=== PATIENT | male | born 1975 | race Hispanic/Latino ===

== ENCOUNTER 2020-01-06 19:11 | Emergency (ER) | payer OTHER, SELFPAY ==
--- OUTSIDE RECORDS SUMMARY | 2020-01-06 19:13 | XMS REPORT | Clinical Summary ---
:1975 Author Organization [facility] Distr ict Address [facility] [place] [address] Care Team Providers Name Role Phone MD Margarita Primary Care Provider Saud Anguiano MD Primary Care Provider Allergies No Known Allergies Medications Medication Sig Dispensed Refills Start Date End Date Status ergocalciferol (VITAMIN Take 1 capsule 12 capsule 0 11/26/2017 Active D2) 50,000 unit by mouth weekly. capsuleIndications: Vitamin D deficiency ibuprofen (MOTRIN) 600 Take 1 tablet by 45 tablet 0 02/01/2018 Active mg tabletIndications: mouth every 8 Chronic bilateral low hours as needed back pain without for Pain. sciatica ketoconazole (NIZORAL) Apply to 30 g 0 02/01/2018 Active 2 % topical cream affected area daily. Active Problems Problem Noted Date Dental decay 06/07/2018 Subgingival dental calculus 04/25/2018 Chronic bilateral low back pain without sciatica 02/01 Social History Tobacco Use Types Packs/Day Years Used Date Never Smoker Smokeless Tobacco: Never Used Alcohol Use Drinks/Week oz/Week Comments No Sex Assigned at Date Recorded Not on file Job Start Date Occupation Industry Not on file Not on file Not on file Travel History Travel Start Travel End No recent travel history available. Last Filed Vital Signs Not on file Plan of Treatment Health Maintenance Due Date Last Done Comments IMM Influenza Seasonal Apr to September (>/= 19 yrs) 04/25/2020 Goals Goal Patient Goal Associated Recent Patient-Stated? Author Type Problems Progress Reduce pain Lifestyle No Arin Lino LVN Results Not on fileafter 01/05/2019
--- OUTSIDE RECORDS SUMMARY | 2020-01-06 19:13 | XMS REPORT | Continuity of Care Document ---
:1975 Author Organization [facility] t Address [address] [place] [address] Care Team Providers Name Role Phone Marlee Avila MD Primary Care Physician Problems Condition Condition Condition Status Onset Resolution Last Treating Co mments Source Name Details Category Date Date Treatment Clinician Date Dental Dental Disease Active 2017-07 [place] decay decay -13 Health 00:00: 00 Subgingiva Subgingiva Disease Active 2017-07 H arris l dental l dental 0-01 Health calculus calculus 00:00: 00 Chronic Chronic Disease Active [place] bilateral bilateral 7-10 [facility] low back low back 00:00: pain pain 00 without without sciatica sciatica Allergies, Adverse Reactions, Alerts This patient has no known allergies or adverse reactions. Social History Social Habit Start Date Stop Date Quantity Comments Source Sex Assigned At [facility] alth Alcohol intake 2018-09-08 2018-09-08 [facility] lt 00:00:00 00:00:00 Smoking Status Start Date Stop Date Source Never smoker [facility] Medications Ordered Filled Start Stop Current Ordering Indication Dosage Frequency Signature Comments Components Source Medication Medication Date Date Medication? Clinician (SIG) Name Name ibuprofen Yes Chronic 600mg Take 1 rris (MOTRIN) 7-10 bilateral tablet by H ealth 600 mg 00:00: low back mouth tablet 00 pain every 8 without hours as sciatica needed for Pain. ketoconazol Yes QD Apply to [place] rris e (NIZORAL) 7-10 affected Heal th 2 % topical 00:00: area cream 00 daily. ergocalcife Yes Vitamin D [id number] Take 1 [facility] 5-04 deficiency capsule by Meek black (VITAMIN 00:00: mouth D2) 50,000 00 weekly. unit capsule Procedures This patient has no known procedures. Plan of Care Planned Activity Planned Date Details Comments Source Future Scheduled Test 2020-04-25 00:00:00 IMM Influenza [facility] Seasonal Apr to September (>/= 19 yrs) [code = IMM Influenza Seasonal Apr to September (>/= 19 yrs)] Encounters Start End Encounter Admission Attending Care Care Encounter Source Date/Time Date/Time Type Type Clinicians Facility Department ID 2018-10-14 2018-10-14 Outpatient [facility] [id number] [place] 00:00:00 00:00:00 [facility] 2018-10-11 2018-10-11 Outpatient [facility] [id number] [place] 00:00:00 00:00:00 [facility] 2018-09-08 2018-09-08 Outpatient [facility] [id number] [place] 13:14:28 13:14:28 Health 2018-09-08 2018-09-08 Outpatient [facility] [id number] [place] 12:42:57 12:42:57 [facility] 2018-09-08 2018-09-08 Outpatient [facility] [id number] [place] 11:36:42 11:36:42 [facility] 2018-09-05 2018-09-05 Outpatient [facility] [id number] [place] 00:00:00 00:00:00 [facility] 2018-07-25 2018-07-25 Outpatient [facility] [id number] [place] 07:30:11 07:30:11 Health 2018-07-22 2018-07-22 Outpatient [facility] [id number] [place] 14:58:54 14:58:54 Health 2018-07-22 2018-07-22 Outpatient [facility] [id number] [place] 00:00:00 00:00:00 [facility] 2018-06-07 2018-06-07 Outpatient [facility] [id number] [place] 13:21:31 13:21:31 Health 2018-04-25 2018-04-25 Outpatient [facility] [id number] [place] 08:34:06 08:34:06 Health 2018-03-14 2018-03-14 Outpatient [facility] [id number] [place] 10:05:11 10:05:11 Health 2018-02-02 2018-02-02 Outpatient [facility] [id number] [place] 07:54:43 07:54:43 Health 2018-02-01 2018-02-01 Outpatient [facility] [id number] [place] 11:56:44 11:56:44 Health Results This patient has no known results.
--- NOTE | 2020-01-06 20:02 | RAD REPORT ---
EXAM DESCRIPTION: RAD -Hand Left 3 View - 01/06/2020 7:44 pm CLINICAL HISTORY: Left hand pain status post injury FINDINGS: No fracture or dislocation is seen. Third digit soft tissue swelling
[2020-01-06] MEDS ORDERED: BUPIVACAINE 0.5% PF 10 ML VIAL ONE (21:52)
[2020-01-06] MEDS ORDERED: LIDOCAINE 1% MPF 30 ML VIAL ONE (21:53)
[2020-01-06] MEDS ORDERED: LIDOCAINE VISCOUS 2% SOLN 15 ML UDC ONE (22:10)
--- NOTE | 2020-01-06 22:44 | EDPHYS ---
Physician Documentation [facility] Name: Jose Daniel Andrew Age: 44 yrs Sex: Male : 1975 Arrival Date: 01/06/2020 Time: 19:12 Bed 20 Private MD: ED Physician Gildardo Webber HPI: 01/05 21:45 This 44 yrs old Male presents to ER via Ambulatory with complaints of Finger cp Injury. 21:45 The patient or guardian reports deformity, injury, pain, tenderness. cp 21:45 The complaints affect the distal phalanx of left middle finger. cp 21:45 Context: resulted from a crush injury, heavy door. Onset: The symptoms/episode cp began/occurred just prior to arrival. Associated signs and symptoms: Pertinent negatives: cyanosis distally, decreased sensation distally. Historical: - Allergies: 19:20 No Known Allergies; ca1 - Home Meds: 19:20 None [Active]; ca1 - PMHx: 19:20 None; ca1 - PSHx: 19:20 None; ca1 - Immunization history:: Adult Immunizations up to date, Last tetanus immunization: unknown. - Social history:: Smoking status: Patient reports the use of cigarette tobacco products, denies chronic smoking, but will smoke occasionally. ROS: 21:50 MS/extremity: Positive for injury or acute deformity, pain, of the distal phalanx left cp middle finger, Negative for decreased range of motion, paresthesias. 21:50 Constitutional: Negative for body aches, chills, fever. cp 21:50 All other systems are negative. Exam: 22:00 Constitutional: The patient appears in no acute distress, alert, awake, well developed, cp well nourished. 22:00 Musculoskeletal/extremity: Extremities: grossly normal except: noted in the distal cp phalanx left middle finger: ROM: full active range of motion, in the left middle finger, Perfusion: the extremity is with brisk capillary refill, Sensation intact. 2 point discrimination intact 22:00 Skin: injury, avulsion(s), A moderate sized of the [place] side of distal phalanx left middle finger, that can be described as no foreign body, irregular, with moderate bleeding. Vital Signs: 19:18 BP 135 / 81; Pulse 63; Resp 16 S; Temp 97.4(TE); Pulse Ox 99% on R/A; Weight 91.17 kg ca1 (R); Height 5 ft. 5 in. (165.10 cm) (R); Pain 5/10; 23:02 BP 135 / 78; Pulse 70; Resp 18; Temp 98.5; Pulse Ox 100% on R/A; mg2 19:18 Body Mass Index 33.45 (91.17 kg, 165.10 cm) ca1 Procedures: 22:45 Nerve block: (digital) of left middle finger Medication: Lidocaine 1% without cp epinephrine Marcaine 0.5%, Amount: 8 mls were injected, Effect: the patient's symptoms are improved, markedly, Performed by Cesar KEN Patient tolerated well. MDM: 21:30 Patient medically screened. cp 22:00 Differential diagnosis: open fracture, tendon injury, nail injury, amputation. cp 22:42 Data reviewed: vital signs, nurses notes, radiologic studies, plain films, I have cp discussed the patient's presentation/case with the attending Emergency Department Physician; and as a result, I will discharge patient. 22:42 Counseling: I had a detailed discussion with the patient and/or guardian regarding: the cp historical points, exam findings, and any diagnostic results supporting the discharge/admit diagnosis, radiology results, the need for outpatient follow up, for definitive care, a hand specialist, to return to the emergency department if symptoms worsen or persist or if there are any questions or concerns that arise at home. 22:42 Response to treatment: the patient's symptoms have markedly improved after treatment. ED course: VSS. Wound cleaned and irrigated, pressure dressing applied. Digital block performed for pain. Will discharge to home for continued monitoring. 01/06 21:07 ED course: Diagnosis: change to Crushing injury of Left Middle Finger with avulsion of cp skin. 01/05 19:21 Order name: XRAY Hand LEFT 3 View; Complete Time: 21:34 ca1 01/05 21:35 Interpretation: Report reviewed. 01/05 21:41 Order name: Dressing - Wound; Complete Time: 22:23 cp 01/05 21:41 Order name: Gloves, Sterile; Complete Time: 22:23 cp 01/05 21:41 Order name: Setup Suture Tray; Complete Time: 22:23 cp Administered Medications: 01/05 22:15 Drug: Lidocaine (1 %) 10 ml {Note: administered by the provider.} Volume: 20 ml; Route: mg2 Infiltration; 22:23 Follow up: Response: No adverse reaction mg2 22:15 Drug: Marcaine (0.5 %) 10 ml {Note: administered by the provider.} Volume: 10 ml; mg2 Route: Infiltration; 22:23 Follow up: Response: No adverse reaction mg2 22:57 Drug: KeFLEX 500 mg Route: PO; mg2 22:58 Follow up: Response: No adverse reaction; Medication administered at discharge. mg2 22:57 Drug: Hydrocodone-Acetaminophen (7.5 mg-325 mg) 1 tabs Route: PO; mg2 22:57 Follow up: Response: No adverse reaction; Medication administered at discharge. mg2 Disposition: 23:10 Chart complete. 01/06 06:24 Co-signature as Attending Physician, Gildardo Webber MD I agree with the assessment and tw4 plan of care. Disposition: 01/06/20 22:43 Discharged to Home. Impression: Crushing injury of left ring finger - with skin avulsion distal phalanx. - Condition is Stable. - Discharge Instructions: Nonsutured Laceration Care, Wound Care. - Prescriptions for Keflex 500 mg Oral Capsule - take 1 capsule by ORAL route every 6 hours for 10 days; 40 capsule. Tylenol- Codeine #3 300-30 mg Oral Tablet - take 2 tablets by ORAL route every 6 hours As needed; 20 tablet. - Medication Reconciliation Form, Thank You Letter, Antibiotic Education, Prescription Opioid Use form. - Follow up: Daniel Hsu MD; When: 1 - 2 days; Reason: Wound Recheck. - Problem is new. - Symptoms have improved. Signatures: Dispatcher [employer] EDMS Cesar Aranda PA PA cp Wadley, Terrence, MD MD tw4 Abner Romero RN RN mg2 Angie Chase RN RN ca1 Corrections: (The following items were deleted from the chart) 01/05 23:06 22:43 01/06/2020 22:43 Discharged to Home. Impression: Crushing injury of left ring mg2 finger - with skin avulsion distal phalanx. Condition is Stable. Forms are Medication Reconciliation Form, Thank You Letter, Antibiotic Education, Prescription Opioid Use. Follow up: Daniel Hsu; When: 1 - 2 days; Reason: Wound Recheck. Problem is new. Symptoms have improved. cp
--- NOTE | 2020-01-06 22:44 | ER ---
Nurse's Notes [facility] Name: Jose Daniel Andrew Age: 44 yrs Sex: Male : 1975 Arrival Date: 01/06/2020 Time: 19:12 Bed 20 Private MD: Diagnosis: Crushing injury of left ring finger-with skin avulsion distal phalanx Presentation: 01/05 19:18 Chief complaint: Patient states: 3rd digit of the L hand was slammed by a heavy door. ca1 Coronavirus screen: Proceed with normal triage. Patient denies a cough. Patient denies shortness of breath or difficulty breathing. Patient denies measured and/or subjective temperature greater than 100.4F prior to today's visit. Patient denies travel on a cruise ship or to a country the [facility] 2[place] currently lists as an affected area. Patient denies contact with known and/or suspected case of COVID-19. Ebola Screen: Patient negative for fever greater than or equal to 101.5 degrees Fahrenheit, and additional compatible Ebola Virus Disease symptoms Patient denies exposure to infectious person. Patient denies travel to an Ebola-affected area in the 21 days before illness onset. No symptoms or risks identified at this time. Initial Sepsis Screen: Does the patient meet any 2 criteria? No. Patient's initial sepsis screen is negative. Does the patient have a suspected source of infection? No. Patient's initial sepsis screen is negative. Risk Assessment: Do you want to hurt yourself or someone else? Patient reports no desire to harm self or others. Onset of symptoms was January 06, 2020. 19:18 Method Of Arrival: Ambulatory ca1 19:18 Acuity: NILA 4 ca1 Historical: - Allergies: 19:20 No Known Allergies; ca1 - Home Meds: 19:20 None [Active]; ca1 - PMHx: 19:20 None; ca1 - PSHx: 19:20 None; ca1 - Immunization history:: Adult Immunizations up to date, Last tetanus immunization: unknown. - Social history:: Smoking status: Patient reports the use of cigarette tobacco products, denies chronic smoking, but will smoke occasionally. Screenin:01 Abuse screen: Denies threats or abuse. Denies injuries from another. Nutritional mg2 screening: No deficits noted. Tuberculosis screening: No symptoms or risk factors identified. Fall Risk None identified. Assessment: 22:30 General: Appears in no apparent distress. uncomfortable, Behavior is calm, cooperative. mg2 Pain: Complains of pain in right middle finger. Neuro: Level of Consciousness is awake, alert, obeys commands, Oriented to person, place, time, situation. Cardiovascular: Capillary refill < 3 seconds. Respiratory: Airway is patent Respiratory effort is even, unlabored, Respiratory pattern is regular, symmetrical. GI: No signs and/or symptoms were reported involving the gastrointestinal system. : No signs and/or symptoms were reported regarding the genitourinary system. EENT: No signs and/or symptoms were reported regarding the EENT system. Derm: crush injury in the right middle finger. Musculoskeletal: Circulation, motion, and sensation intact. Capillary refill < 3 seconds. Injury Description: Crush injury. Vital Signs: 19:18 BP 135 / 81; Pulse 63; Resp 16 S; Temp 97.4(TE); Pulse Ox 99% on R/A; Weight 91.17 kg ca1 (R); Height 5 ft. 5 in. (165.10 cm) (R); Pain 5/10; 23:02 BP 135 / 78; Pulse 70; Resp 18; Temp 98.5; Pulse Ox 100% on R/A; mg2 19:18 Body Mass Index 33.45 (91.17 kg, 165.10 cm) ca1 ED Course: 19:12 Patient arrived in ED. ds1 19:20 Triage completed. ca1 19:20 Arm band placed on right wrist. ca1 19:44 XRAY Hand LEFT 3 View In Process Unspecified. EDMS 21:27 Cesar Aranda PA is PHCP. cp 21:27 Gildardo Webber MD is Attending Physician. cp 21:42 Abner Romero, HUMBERTO is Primary Nurse. mg2 22:30 Patient has correct armband on for positive identification. Door closed. Warm blanket mg2 given. 22:30 No provider procedures requiring assistance completed. Patient did not have IV access mg2 during this emergency room visit. 22:30 Irrigation of crush injury on left middle finger irrigated with normal saline Hibiclens mg2 solution Patient tolerated well. Wound care: to crush injury located on left middle finger was cleaned with Hibiclens, irrigated with normal saline, dressed with 4X4s, surgiseal, Patient tolerated well. 22:41 Daniel Hsu MD is Referral Physician. cp 23:05 Wound care:. mg2 Administered Medications: 22:15 Drug: Lidocaine (1 %) 10 ml {Note: administered by the provider.} Volume: 20 ml; Route: mg2 Infiltration; 22:23 Follow up: Response: No adverse reaction mg2 22:15 Drug: Marcaine (0.5 %) 10 ml {Note: administered by the provider.} Volume: 10 ml; mg2 Route: Infiltration; 22:23 Follow up: Response: No adverse reaction mg2 22:57 Drug: KeFLEX 500 mg Route: PO; mg2 22:58 Follow up: Response: No adverse reaction; Medication administered at discharge. mg2 22:57 Drug: Hydrocodone-Acetaminophen (7.5 mg-325 mg) 1 tabs Route: PO; mg2 22:57 Follow up: Response: No adverse reaction; Medication administered at discharge. mg2 Intake: 22:52 IV: 175ml; Total: 175ml. ls4 Outcome: 22:43 Discharge ordered by MD. cp 23:04 Discharged to home ambulatory. mg2 23:04 Condition: stable 23:04 Discharge instructions given to patient, Instructed on discharge instructions, follow up and referral plans. medication usage, wound care, Demonstrated understanding of instructions, follow-up care, medications, wound care, Prescriptions given X 2. 23:06 Patient left the ED. mg2 Signatures: Dispatcher [employer] [facility] Bree Guaman ds1 Cesar Aranda PA PA cp Abner Romero RN RN mg2 Albania Diaz RN RN ls4 Angie Chase RN RN ca1 Corrections: (The following items were deleted from the chart) 23:02 23:01 Patient has correct armband on for positive identification. mg2 mg2 23:02 23:01 Door closed. Warm blanket given. mg2 mg2 23:06 22:30 Irrigation of crush injury on right middle finger irrigated with normal saline mg2 Hibiclens solution Patient tolerated well mg2 23:06 22:30 Wound care: to crush injury located on right middle finger was cleaned with mg2 Hibiclens, irrigated with normal saline, dressed with 4X4s, surgiseal, Patient tolerated well. mg2
[2020-01-06] MEDS ORDERED: HYDROCODONE/APAP 7.5/325 MG TAB ONE (22:56)
[2020-01-06] MEDS ORDERED: CEPHALEXIN 250 MG CAP ONE (22:56)
[2020-01-06 23:18] VITALS: BP 135/78; TEMP 98.5; O2SAT 100
== END 2020-01-06 23:06 | disposition home or self-care (01) ==
LOC: ER 19:11
DX: S61.205A Unspecified open wound of left ring finger without damage to nail, initial encounter (principal); S67.195A Crushing injury of left ring finger, initial encounter; W23.0XXA Caught, crushed, jammed, or pinched between moving objects, initial encounter; Y93.9 Activity, unspecified; Y92.9 Unspecified place or not applicable; F17.210 Nicotine dependence, cigarettes, uncomplicated
CPT/HCPCS: 64450; 99284

== ENCOUNTER 2024-10-03 03:59 | Inpatient (IN) | payer OTHER ==
[2024-10-03 04:41] LABS: Absolute Eosinophils 0.2 K/uL (0-0.5); Absolute Lymphocytes (CBC) 0.6 K/uL (0.7-4.9); Absolute Monocytes 0.7 K/uL (0.1-1.3); Absolute Neutrophil 12.3 K/uL (1.8-8.0); Basophils % 0.3 % (0-1.3); Eosinophils % 1.5 % (0-4.4); Hematocrit 45.3 % (39.6-49.0); Hemoglobin 15.1 g/dL (13.6-17.9); Lymphocytes % 4.2 % (15.3-44.8); MCH 28.2 pg (27.0-35.0); MCHC 33.2 g/dL (32.0-36.0); MCV 84.9 fL (80-100); MPV 7.7 fL (7.6-11.3); Monocytes % 4.9 % (3.3-12.3); Neutrophils % 89.1 % (41.7-73.7); Platelets 262 thou/uL (152-406); RBC Red Blood Cell Count 5.34 M/uL (4.33-5.43); Red Cell Distribution Width 13.6 % (12.1-15.2)
[2024-10-03 04:55] LABS: ALT/SGPT 31 U/L (16-61); AST/SGOT 14 U/L (15-37); Albumin 3.9 g/dL (3.4-5.0); Albumin/Globulin Ratio 0.9 (1.1-1.8); Alkaline Phosphatase 93 U/L (45-117); Anion Gap 7.9 mEq/L (5.0-15.0); BUN Blood Urea Nitrogen 20 mg/dL (7-18); Bicarbonate 31 mEq/L (21-32); Bilirubin Direct 0.2 mg/dL (0-0.2); Bilirubin Indirect, Calculated 0.8 mg/dL (0.2-0.8); Globulin 4.4 g/dL (2.3-3.5); Glomerular Filtration Rate 90 ml/min (=/>90); Glucose Level 122 mg/dL (74-106); Potassium 3.9 mEq/L (3.5-5.1); Protein, Total 8.3 g/dL (6.4-8.2); Sodium Level 136 mEq/L (136-145)
[2024-10-03 05:11] LABS: Troponin High Sensitivity < 3.0 pg/mL (<58.9)
[2024-10-03 05:18] LABS: Band Neutrophils 11 % (0-1); Differential Total Cells Count 100; Eosinophils 2 % (0-3); Lymphocytes 9 % (15-42); Monocytes 3 % (0-10); Reactive Lymphocytes 1 %; Segmented Neutrophils 74 % (40-80)
[2024-10-03 05:19] LABS: Blood Morphology Comment NOT SEEN (NOT SEEN); Platelet Estimate ADEQ
--- NOTE | 2024-10-03 06:51 | RAD REPORT ---
EXAM DESCRIPTION: Abdomen Pelvis W Contrast CLINICAL HISTORY: RLQ PAIN COMPARISON: None TECHNIQUE: Contiguous axial sections of the abdomen and pelvis were obtained with intravenous contrast. This exa m was performed according to our departmental dose-optimization program, which includes automated exposure control, adjustment of the mA and/or kV according to patient size and/or use of iterative re construction technique. FINDINGS: Lower Chest: The imaged lung bases are clear. No pleural or pericardial effusion. Organs: The liver, spleen, gallbladder, pancreas, and adrenal glands are normal. The kidneys are inta ct. GI/Bowel: Mildly distended fluid-filled loops of small bowel within the left mid and lower quadrant o f the abdomen measuring up to 3.2 cm. There is wall thickening of the small bowel loops within the left mid and lower quadrant of the abdomen secondary to a nonspecific enteritis. The appendix is norm al. The stomach is moderately distended with fluid. Pelvis: The bladder is normal. The rectum is normal. No pelvic free fluid. No pelvic lymphadenopathy. Peritoneum/Retroperitoneum: No intraperitoneal free air. No intraperitoneal free fluid. No mesenteric or retroperitoneal lymphadenopathy. Bones/Soft Tissues: There are no suspicious-appearing lytic or blastic osseous lesions. IMPRESSION: 1. Nonspecific enteritis with mildly distended fluid-filled loops of small bowel left mid and lower quadrant of the abdomen suggesting ileus. 2. Normal appendix. RECOMMENDATIONS: Electronically signed by: Maverick Palomino MD 10/03/2024 06:45 AM CDT RP Due to temporary technical issues with the PACS/[employer] reporting system, reports are being clover d by the in-house radiologist without review as a courtesy to ensure prompt reporting the interpreting radiologist is fully responsible for the content of the report. Transcribed Date/Time: 10/03/2024 6:51 AM
--- NOTE | 2024-10-03 06:52 | RAD REPORT ---
CLINICAL HISTORY: Chest pain. COMPARISON: None. TECHNIQUE: XR CHEST 1 VIEW 10/03/2024 4:13 AM CDT FINDINGS: Cardiac silhouette is normal in size. Lungs are clear without consolidation, atelectasis, mass or lopez ma. There is no pleural effusion. There is no pneumothorax. There are no acute osseous findings. IMPRESSION: Clear lungs. Electronically signed by: Alphonse Park MD 10/03/2024 06:49 AM CDT RP Du e to temporary technical issues with the PACS/[employer] reporting system, reports are being signed by the in-house radiologist without review as a courtesy to ensure prompt reporting the [facility] radiologist is fully responsible for the content of the report. Transcribed Date/Time: 10/03/2024 6:52 AM
--- NOTE | 2024-10-03 07:00 | ER ---
Nurse's Notes [facility] Name: Jose Daniel Andrew Age: 49 yrs Sex: Male : 1975 Arrival Date: 10/03/2024 Time: 03:59 Bed 6 Private MD: Diagnosis: Ileus;Enteritis;Bandemia Presentation: 10/03 04:03 Chief complaint: EMS states: Pt was at work and was getting off work this morning and kd3 had a sudden feeling of chest tightness. SOB, headache and nausea and vomiting. PT has no significant cardiac history. Coronavirus screen: Vaccine status: Patient reports receiving the 2nd dose of the covid vaccine. Ebola Screen: No symptoms or risks identified at this time. Initial Sepsis Screen: Does the patient meet any 2 criteria? No. Patient's initial sepsis screen is negative. Does the patient have a suspected source of infection? No. Patient's initial sepsis screen is negative. Risk Assessment: Do you want to hurt yourself or someone else? Patient reports no desire to harm self or others. Onset of symptoms was October 03, 2024. 04:03 Method Of Arrival: EMS: [facility] kd3 04:03 Acuity: NILA 3 kd3 Triage Assessment: 04:06 General: Appears in no apparent distress. Behavior is calm, cooperative. Pain: kd3 Complains of pain in chest. Historical: - Allergies: 04:06 No Known Allergies; kd3 - Immunization history:: Adult Immunizations up to date. - Infectious Disease History:: Denies. - Social history:: Smoking status: Patient denies any tobacco usage or history of. - Family history:: not pertinent. Screenin:32 [facility] ED Fall Risk Assessment (Adult) History of falling in the last 3 months, kd3 including since admission No falls in past 3 months (0 pts) Confusion or Disorientation No (0 pts) Intoxicated or Sedated No (0 pts) Impaired Gait No (0 pts) Mobility Assist Device Used No (0 pt) Altered Elimination No (0 pt) Score/Fall Risk Level 0 - 2 = Low Risk Oriented to surroundings. Abuse screen: Denies threats or abuse. Denies injuries from another. Nutritional screening: No deficits noted. Tuberculosis screening: No symptoms or risk factors identified. Assessment: 04:32 General: Appears uncomfortable, Behavior is calm, cooperative. Pain: Denies pain. kd3 Neuro: Level of Consciousness is awake, alert, obeys commands, Oriented to person, place, time, situation. Cardiovascular: Patient's skin is warm and dry. Respiratory: Airway is patent Trachea midline Respiratory effort is even, unlabored, Respiratory pattern is regular, symmetrical. GI:. GI:. Derm: Skin is clammy, Skin is pale, Skin temperature is warm. 08:18 Reassessment: No changes from previously documented assessment. Patient and/or family ld1 updated on plan of care and expected duration. Pain level reassessed. Patient is alert, oriented x 3, equal unlabored respirations, skin warm/dry/pink. Vital Signs: 04:03 BP 129 / 80; Pulse 80; Resp 19; Temp 98.2(O); Pulse Ox 96% on R/A; Weight 95.25 kg; kd3 Height 5 ft. 5 in. ; 04:31 BP 107 / 65; Pulse 76; Resp 16; Pulse Ox 99% on R/A; kd3 05:45 BP 142 / 85; Pulse 87; Resp 18; Pulse Ox 96% on R/A; kd3 06:20 BP 140 / 86; Pulse 87; Resp 17; Pulse Ox 95% on R/A; kd3 07:00 BP 129 / 83; Pulse 94; Resp 19; Pulse Ox 95% on R/A; ld1 04:03 Body Mass Index 34.95 (95.25 kg, 165.1 cm) kd3 Vitals: 04:31 Cardiac Rhythm Assessment Regular Sinus rhythm. kd3 ED Course: 04:02 Patient arrived in ED. oe 04:02 Vanessa Garcia, HUMBERTO is Primary Nurse. kd3 04:02 Melvin Driver MD is Attending Physician. rt 04:06 Triage completed. kd3 04:06 Arm band placed on. kd3 04:21 EKG done, by ED staff, reviewed by Melvin Driver MD. kd3 04:32 No provider procedures requiring assistance completed. Inserted saline lock: 20 gauge kd3 in right antecubital area, using aseptic technique. Blood collected. Flushed with 10 mL NS. 04:33 Patient has correct armband on for positive identification. Provided Education on: kd3 cardiac work up . Client placed on continuous cardiac and pulse oximetry monitoring. NIBP monitoring applied. environmental monitoring technician on. Pulse ox on. NIBP on. 04:34 Basic Metabolic Panel Sent. kd3 04:34 CBC with Diff Sent. kd3 04:34 LFT's Sent. kd3 04:34 Troponin HS Sent. kd3 04:44 XRAY Chest (1 view) In Process Unspecified. EDMS 05:26 CT Abd/Pelvis - IV Contrast Only In Process Unspecified. EDMS 06:59 Yfn Jackson MD is Hospitalizing Provider. rt 08:06 Blood Culture Adult (2) Sent. ld1 08:06 Lactate w/ 2H reflex if indic. Sent. ld1 08:06 Inserted saline lock: 20 gauge in right hand, using aseptic technique. ld1 08:20 Patient admitted, IV remains in place. ld1 Administered Medications: 08:06 Drug: Piperacillin-Tazobactam IVPB 3.375 grams IVPB once over 60 mins; (mix in NS 100 ld1 mL) Route: IVPB; Infused Over: 60 mins; Site: right antecubital; 08:06 Drug: NS 0.9% IV 1000 ml IV at 1000 ml once; to be given as a bolus over 60 minutes ld1 Route: IV; Rate: 1000 ml; Site: right antecubital; Medication: 04:32 VIS not applicable for this client. kd3 Outcome: 06:59 Decision to Hospitalize by Provider. rt 08:19 Admitted to Med/surg accompanied by armando, with chart, ld1 08:19 Condition: stable 08:19 Instructed on the need for admit, 08:55 Patient left the ED. ap3 Signatures: Dispatcher [employer] EDIA Pillo Martinez Amanda, RN RN ap3 Kirsty Hobbs RN RN ld1 Vanessa Garcia RN RN kd3 Melvin Driver MD MD rt Corrections: (The following items were deleted from the chart) 08:18 08:18 Inserted saline lock: 20 gauge in right hand, using aseptic technique. ld1 ld1
--- NOTE | 2024-10-03 07:00 | EDPHYS ---
Physician Documentation [facility] Name: Jose Daniel Andrew Age: 49 yrs Sex: Male : 1975 Arrival Date: 10/03/2024 Time: 03:59 Bed 6 Private MD: ED Physician Melvin Driver HPI: 10/03 04:23 This 49 yrs old Male presents to ER via EMS with complaints of chest pain. rt 04:45 Patient presents to the ED with a substernal chest pain with associated nausea, rt shortness of breath, lightheadedness that occurred after work when he sitting in his truck. Patient states that the symptoms have all but resolved. Reports an associated right lower quadrant pain denies other acute complaints at this time, symptoms are moderate in severity, no other aggravating or alleviating factors.. Historical: - Allergies: 04:06 No Known Allergies; kd3 - Immunization history:: Adult Immunizations up to date. - Infectious Disease History:: Denies. - Social history:: Smoking status: Patient denies any tobacco usage or history of. - Family history:: not pertinent. ROS: 04:45 Constitutional: Negative for fever, chills, and weight loss, MS/Extremity: Negative for rt injury and deformity, Skin: Negative for injury, rash, and discoloration, Neuro: Negative for headache, weakness, numbness, tingling, and seizure, 04:45 Cardiovascular: Positive for chest pain, Negative for edema, 04:45 Respiratory: Positive for shortness of breath, Negative for cough, 04:45 Abdomen/GI: Positive for abdominal pain, nausea, Exam: 04:45 Constitutional: This is a well developed, well nourished patient who is awake, alert, rt and in no acute distress. Head/Face: Normocephalic, atraumatic. Chest/axilla: Normal chest wall appearance and motion. Nontender with no deformity. No lesions are appreciated. Cardiovascular: Regular rate and rhythm with a normal S1 and S2. No gallops, murmurs, or rubs. Normal PMI, no JVD. No pulse deficits. Respiratory: Lungs have equal breath sounds bilaterally, clear to auscultation and percussion. No rales, rhonchi or wheezes noted. No increased work of breathing, no retractions or nasal flaring. Skin: Warm, dry with normal turgor. Normal color with no rashes, no lesions, and no evidence of cellulitis. MS/ Extremity: Pulses equal, no cyanosis. Neurovascular intact. Full, normal range of motion. Neuro: Awake and alert, GCS 15, oriented to person, place, time, and situation. Cranial nerves II-XII grossly intact. Motor strength 5/5 in all extremities. Sensory grossly intact. Cerebellar exam normal. Normal gait. 04:45 ECG was reviewed by the Attending Physician. 04:45 Abdomen/GI: Mild right lower quadrant tenderness without rebound, guarding, distention, Vital Signs: 04:03 BP 129 / 80; Pulse 80; Resp 19; Temp 98.2(O); Pulse Ox 96% on R/A; Weight 95.25 kg; kd3 Height 5 ft. 5 in. ; 04:31 BP 107 / 65; Pulse 76; Resp 16; Pulse Ox 99% on R/A; kd3 05:45 BP 142 / 85; Pulse 87; Resp 18; Pulse Ox 96% on R/A; kd3 06:20 BP 140 / 86; Pulse 87; Resp 17; Pulse Ox 95% on R/A; kd3 07:00 BP 129 / 83; Pulse 94; Resp 19; Pulse Ox 95% on R/A; ld1 04:03 Body Mass Index 34.95 (95.25 kg, 165.1 cm) kd3 MDM: 04:07 Medical Screening Exam initiated rt 07:00 Differential Diagnosis ACS, nonspecific chest pain, ileus, appendicitis,. Data rt reviewed: vital signs, nurses notes, lab test result(s), EKG, radiologic studies. Consideration of Admission/Observation Patient was admitted/placed on observation. Management of patient was discussed with the following: Hospitalist: Agrees to admit. I considered the following discharge prescriptions or medication management in the emergency department Medications were administered in the Emergency Department. See MAR. Independent interpretation of the following test(s) in the Emergency Department X-Ray: My interpretation is No infiltrate seen on interpretation of x-ray images. Counseling: I had a detailed discussion with the patient and/or guardian regarding the historical points, exam findings, and any diagnostic results supporting the discharge/admit diagnosis, lab results, radiology results, the need for further work-up and treatment in the hospital. Response to treatment: the patient's symptoms have mildly improved after treatment. 10/03 04:13 Order name: Basic Metabolic Panel; Complete Time: 05:22 rt 10/03 04:13 Order name: CBC with Diff; Complete Time: 05:22 rt 10/03 04:13 Order name: LFT's; Complete Time: 05:22 rt 10/03 04:13 Order name: Troponin HS; Complete Time: 05:22 rt 10/03 04:44 Order name: Manual Differential; Complete Time: 05:22 EDMS 10/03 06:57 Order name: Blood Culture Adult (2) rt 10/03 06:57 Order name: Lactate w/ 2H reflex if indic. rt 10/03 06:57 Order name: Protime (+inr) rt 10/03 06:57 Order name: Ptt, Activated rt 10/03 04:13 Order name: XRAY Chest (1 view); Complete Time: 06:58 rt 10/03 04:13 Order name: CT Abd/Pelvis - IV Contrast Only; Complete Time: 06:58 rt 10/03 04:13 Order name: EKG; Complete Time: 04:14 rt 10/03 04:13 Order name: Cardiac monitoring; Complete Time: 04:21 rt 10/03 04:13 Order name: EKG - Nurse/Tech; Complete Time: 04:21 rt 10/03 04:13 Order name: IV Saline Lock; Complete Time: 04:34 rt 10/03 04:13 Order name: Labs collected and sent; Complete Time: 04:34 rt 10/03 04:13 Order name: O2 Per Protocol; Complete Time: 04:21 rt 10/03 04:13 Order name: O2 Sat Monitoring; Complete Time: 04:21 rt 10/03 06:57 Order name: Accucheck; Complete Time: 07:57 rt 10/03 06:57 Order name: IV Saline Lock - Large Bore; Complete Time: 08:06 rt 10/03 06:57 Order name: Vital Signs; Complete Time: 07:58 rt EC:45 Rate is 85 beats/min. Rhythm is regular, Normal Sinus Rhythm with No ectopy. QRS [place] rt is Normal. CA interval is normal. QRS interval is normal. QT interval is normal. No Q waves. T waves are Normal. No ST changes noted. Interpreted by me. Administered Medications: 08:06 Drug: Piperacillin-Tazobactam IVPB 3.375 grams IVPB once over 60 mins; (mix in NS 100 ld1 mL) Route: IVPB; Infused Over: 60 mins; Site: right antecubital; 08:06 Drug: NS 0.9% IV 1000 ml IV at 1000 ml once; to be given as a bolus over 60 minutes ld1 Route: IV; Rate: 1000 ml; Site: right antecubital; Disposition Summary: 10/03/24 06:59 Hospitalization Ordered Notes: Hospitalization Status: Inpatient Admission rt Provider: Yfn Jackson rt [facility] rt Condition: Stable rt Problem: new rt Symptoms: have improved rt Bed/Room Type: Standard rt Room Assignment: 213(10/03/24 07:32) bd Diagnosis - Ileus rt - Enteritis rt - Bandemia rt Forms: - Medication Reconciliation Form rt - SBAR form rt - Leadership Thank You Letter rt Signatures: Dispatcher [employer] EDMS Judith Wise bd Kirsty Hobbs RN RN ld1 Vanessa Garcia RN RN kd3 Melvin Driver MD MD rt Corrections: (The following items were deleted from the chart) 06:57 06:57 BLOOD CULTURE*+BA.LAB.BRZ ordered. EDMS EDMS 06:57 06:57 LACTATE+C.LAB.BRZ ordered. EDMS EDMS 06:57 06:57 PROTIME (+INR)+COAG.LAB.BRZ ordered. EDMS EDMS 06:57 06:57 PTT, ACTIVATED+COAG.LAB.BRZ ordered. EDMS EDMS 07:32 06:59 rt bd
[2024-10-03] MEDS ORDERED: NA CHLORIDE 0.9% 1,000 ML ONE (07:40)
[2024-10-03] MEDS ORDERED: NA CHLORIDE 0.9% 100 ML ONE (07:40)
[2024-10-03] MEDS ORDERED: PIPERACIL/TAZO 3.375 GM VIAL IV ONE (07:40)
[2024-10-03] MEDS ORDERED: MORPHINE 2 MG/ML SYR IV PRN (09:58)
[2024-10-03] MEDS ORDERED: ONDANSETRON 4 MG/2 ML VIAL IV PRN (09:58)
[2024-10-03] MEDS: NA CHLORIDE 0.9% 1,000 ML IV SCH (09:58)
[2024-10-03 10:50] LABS: PT Prothrombin Time 11.4 SECONDS (10-13.0); PTT, Activated Partial Thromb 30.8 SECONDS (27.2-37.4)
--- NOTE | 2024-10-03 10:56 | EKG ---
Test Date: 2024-10-03 Test Time: 04:18:22 Bag Liner: JAIR MEASUREMENT RESULTS: Intervals: Rate: 85 SC: 136 QRSD: 72 QT: 358 QTc: 426 [place]: P: 42 SC: 136 QRS: 14 T: 58 INTERPRETIVE STATEMENTS: Normal sinus rhythm Normal ECG No previous ECG available for comparison Electronically Signed On 10-03-24 10:55:48 CDT by Lior Montilla
[2024-10-03] MEDS ORDERED: MORPHINE 4 MG/ML SYR IV PRN (11:13)
--- NOTE | 2024-10-03 13:30 | P.HP ---
Certification for Inpatient Patient admitted to: Inpatient With expected LOS: >2 Midnights Patient will require the following post-hospital care: None Practitioner: I am a practitioner with admitting privileges, knowledge of patient current condition, hospital course, and medical plan of care. Services: Services provided to patient in accordance with Admission requirements found in Title 42 Section 412.3 of the Code of Federal Regulations Patient History Date of Service: 10/03/24 Reason for admission: Enteritis/ileus History of Present Illness: 49-year-old male with no significant past medical history presents the emergency department chief complaint of abdominal pain, chest pain, nausea vomiting and diarrhea for 1 day with near syncope. He was evaluated in the emergency department his labs were significant for a white blood cell count of 13.[address] abdomen pelvis with IV contrast was performed which showed enteritis with pos sible ileus, chest x-ray was negative for acute findings. 11% bands on his CBC as well. Patient will be admitted for further evaluation and management of enteritis, ileus. Allergies No Known Allergies Allergy (Unverified 10/03/24 09:04) - Past Medical/Surgical History -: None -: Right leg surgery Psychosocial/ Personal History: Lives at home with family - Social History Alcohol use: No CD- Drugs: No Caffeine use: Yes Place of Residence: Home Review of Systems 10-point ROS is otherwise unremarkable Gastrointestinal: Nausea, Vomiting, Abdominal Pain, Diarrhea Physical Examination - Vital Signs Temperature: 98.4 F Blood Pressure: 125/73 Pulse: 90 Respirations: 16 Pulse Ox (%): 94 - Physical Exam General: Alert, In no apparent distress, Oriented x3 HEENT: Atraumatic, PERRLA, EOMI Neck: Supple, 2+ carotid pulse no bruit, No LAD Respiratory: Clear to auscultation bilaterally, Normal air movement Cardiovascular: Regular rate/rhythm, Normal S1 S2 Gastrointestinal: Normal bowel sounds, No tenderness Musculoskeletal: No tenderness Integumentary: No rashes Neurological: Normal speech, Normal strength at 5/5 x4 extr - Studies Laboratory Data (last 24 hrs) 10/03/24 10/03/24 04:27 04:27 WBC 13.80 H Hgb 15.1 Hct 45.3 Plt Count 262 Sodium 136 Potassium 3.9 BUN 20 H Creatinine 1.02 Glucose 122 H Total Bilirubin 1.0 AST 14 L ALT 31 Alkaline Phosphatase 93 Assessment and Plan - Plan Assessment: Enteritis/ileus Leukocytosis Bandemia Plan: Enteritis/ileus Leukocytosis Bandemia Continue empiric antibiotics with [facility] Surgery consultation Serial abdominal exams/Daily CBC Monitor for fevers DVT PPX: Lovenox Code status: Full Discharge Plan: Home Plan to discharge in: 48 Hours - Advance Directives Does patient have a Living Will: No Does patient have a Durable POA for Healthcare: No - Code Status/Comfort Care Code Status Assessed: Yes (Full code) Critical Care: No Time Spent Managing Pts Care (In Minutes): 64
[2024-10-03 14:26] VITALS: BMI 34.7
--- NOTE | 2024-10-03 15:44 | CON ---
Date of Consultation: 10/03/2024 History Of Present Illness: Mr. Andrew is a 49-year-old patient who work here in the [place], and then he stated that yesterday he never drink the water from that area and then he was just feelin g thirsty and he tried the water and half an hour later to 1 hour developed abdominal pain. He ate a lso outside. He normally worked on the [place], so he eats whatever is available for him at that moment , but he is not sure if that was the diet or the water. He is more inclined about the water. Never had this pain before. It was generalized. Today it is improved compared with last night. He has so me diarrhea present. No dysuria, hematuria, hematochezia, melena. No recent traveling out of the [facility]. No family member sick at home. He stated he had a colonoscopy in July and they found few things. They found strange bacteria. They gave him "some antibiotics for it" and [facility] and the and also they found polyposis coli. He is supposed to have a colonoscopy repeated in 3 to 6 months as per . He could not come if the bacteria were in the stomach or the intestines. Allergies: NONE. Medical History: Polyposis coli. He mentions some bacteria in the colon in the past, colon or stoma ch he is not sure. Family History: Noncontributory. Social History: He does not smoke. He does not drink alcohol. Family History: Noncontributory. Past Surgical History: None. Physical Examination: Vital Signs: Reviewed. The patient is afebrile. General: Patient is awake, alert. Eyes: Pupils are equal and reactive. Anicteric. Neck: Supple. Chest: Clear. Heart: S1, S2. Abdomen: Soft and depressible. No guarding or rebound. No peritoneal signs. Mild generalized disc omfort with no peritonitis. Rectal: Deferred. Extremities: Good capillary refill. Laboratory Data: WBC count is 13, with hemoglobin of 15.1. INR is 1. Glucose 122. CAT scan of the abdomen and pelvis interpreted by Dr. Murrieta as normal appendix. There is nonspecific enteritis. M ildly distended fluid filled loops of small bowel in the left, mid, and lower quadrant of the abdomen suggesting ileus. Assessment: This is a 49-year-old patient. He claimed that he had abdominal pain about 1 hour after he ate outside while he was at work. No other family member sick at home. He feels better today, h as some diarrhea overnight. From the surgical standpoint, the abdomen is benign. So, we are going t o start feeding him. If he gets worse, then we always have a chance for a diagnostic laparoscopy, al though he preferred not to use those options at this time. 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 MARIA C/ARMINDA Voice ID: [id number] Report ID: [id number]
[2024-10-03] MEDS: ACETAMINOPHEN 325 MG TABLET PO PRN (16:03)
[2024-10-03] MEDS: PIPER TAZO 3.375 GM in NA CHLORIDE 0.9% 100 ML IV SCH (17:14)
[2024-10-03 20:37] LABS: Specific Gravity 1.007 (1.005-1.030); Sqamous Epithelial <5 /HPF (None Seen); Urine Bacteria None Seen /HPF (<20); Urine Bilirubin NEGATIVE (Negative); Urine Blood 1+ (Negative); Urine Clarity Clear (Clear); Urine Color Colorless (Yellow); Urine Culture Reflex Order NOT NEEDED; Urine Glucose NEGATIVE (Negative); Urine Ketones NEGATIVE (Negative); Urine Microscopic Reflex YN ORDER UMIC; Urine Nitrite NEGATIVE (Negative); Urine Protein NEGATIVE (Negative); Urine RBC <5 /HPF (None Seen); Urine Urobilinogen Normal (Normal); Urine WBC <5 /HPF (<5)
[2024-10-03 23:22] LABS: STOOL CONSISTENCY Liquid/Semi-Solid
[2024-10-03 23:23] LABS: C.diff Antigen/Toxin Ag neg : Tox neg (NEG : NEG); CDIFF INTERNAL NEG CONTROL White Background (WHITE BKGD)
[2024-10-04 04:45] LABS: Absolute Eosinophils 0.3 K/uL (0-0.5); Absolute Monocytes 0.8 K/uL (0.1-1.3); Absolute Neutrophil 4.3 K/uL (1.8-8.0); Basophils % 0.2 % (0-1.3); Eosinophils % 3.6 % (0-4.4); Hematocrit 39.6 % (39.6-49.0); Hemoglobin 13.4 g/dL (13.6-17.9); Lymphocytes % 27.3 % (15.3-44.8); MCH 28.8 pg (27.0-35.0); MCHC 33.8 g/dL (32.0-36.0); MCV 85.1 fL (80-100); MPV 7.5 fL (7.6-11.3); Monocytes % 10.7 % (3.3-12.3); Neutrophils % 58.2 % (41.7-73.7); Platelets 229 thou/uL (152-406); RBC Red Blood Cell Count 4.65 M/uL (4.33-5.43); Red Cell Distribution Width 13.6 % (12.1-15.2)
[2024-10-04 04:58] LABS: Anion Gap 4.8 mEq/L (5.0-15.0); Potassium 3.8 mEq/L (3.5-5.1)
--- NOTE | 2024-10-04 09:13 | P.PN ---
Date of Service: 10/04/24 Subjective: Symptoms improving overnight Tolerated full liquid diet Had some diarrhea still ROS: 10 point ROS as noted above, otherwise negative Physical exam GEN: Alert, oriented, NAD HEENT: Normal conjunctiva, sclera anicteric CV: Regular rate and rhythm, no edema Pulm: Nonlabored respirations on room air ABD: Soft, nontender, nondistended MSK: No joint tenderness Integumentary: No rashes Neuro: Normal speech, normal affect Vitals reviewed Assessment: Enteritis/ileus Leukocytosis Bandemia Plan: Enteritis/ileus Leukocytosis Bandemia Continue empiric antibiotics with [facility] General Surgery consultated/following Serial abdominal exams/Daily CBC White blood cell count improving Blood cultures with no growth in 24 hours C. difficile testing negative Advance diet, continue to monitor Reports some abnormal outpatient stool testing colonoscopy we will attempt to reach out to his GI office- DVT PPX: Lovenox Code status: Full Discharge Plan: Home Plan to discharge in: 48 Hours Time Spent Managing Pts Care (In Minutes): 35
[2024-10-04] MEDS: KCL 20 MEQ/100 mL IVPB 20 MEQ/100 ML BAG IV SCH (14:00)
[2024-10-04] MEDS: POTASSIUM CL SA 10 MEQ TAB PO ONE (14:32)
[2024-10-05 01:37] VITALS: O2SAT 94
[2024-10-05 04:51] LABS: Absolute Eosinophils 0.4 K/uL (0-0.5); Absolute Lymphocytes (CBC) 2.8 K/uL (0.7-4.9); Absolute Monocytes 0.9 K/uL (0.1-1.3); Absolute Neutrophil 3.5 K/uL (1.8-8.0); Basophils % 0.4 % (0-1.3); Eosinophils % 4.9 % (0-4.4); Hematocrit 40.1 % (39.6-49.0); Hemoglobin 13.7 g/dL (13.6-17.9); Lymphocytes % 36.8 % (15.3-44.8); MCH 28.8 pg (27.0-35.0); MCHC 34.3 g/dL (32.0-36.0); MPV 8.1 fL (7.6-11.3); Monocytes % 12.1 % (3.3-12.3); Neutrophils % 45.8 % (41.7-73.7); Nucleated Red Blood Cells % 0.1 % (0-0); Platelets 237 thou/uL (152-406); RBC Red Blood Cell Count 4.77 M/uL (4.33-5.43); Red Cell Distribution Width 13.5 % (12.1-15.2)
[2024-10-05 05:12] LABS: Anion Gap 5.2 mEq/L (5.0-15.0); Potassium 4.2 mEq/L (3.5-5.1)
[2024-10-05 08:34] VITALS: BP 118/68; TEMP 97.7
--- NOTE | 2024-10-05 09:22 | P.DS ---
Admission Date: 10/03/24 Discharge Date: 10/05/24 Disposition: ROUTINE DISCHARGE Discharge Condition: GOOD Reason for Admission: Enteritis/ileus Brief History of Present Illness: 49-year-old male with no significant past medical history presents the emergency department chief complaint of abdominal pain, chest pain, nausea vomiting and diarrhea for 1 day with near syncope. He was evaluated in the emergency department his labs were significant for a white blood cell count of 13.[address] abdomen pelvis with IV contrast was performed which showed enteritis with possible ileus, chest x-ray was negative for acute findings. 11% bands on his CBC as well. Patient will be admitted for further evaluation and management of enteritis, ileus. Hospital Course: Assessment: Enteritis/ileus Leukocytosis Bandemia 49-year-old male presents to the hospital with chief complaint of abdominal pain nausea vomiting and diarrhea. He had leukocytosis and his CT scan showed concern for enteritis/ileus. He was treated conservatively with IV antibiotics and bowel rest and had significant improvement in his symptoms. His white blood cell count is decreased and he is tolerating a diet currently and stable for discharge with outpatient follow-up. He reports that he follows with a GI doctor and had a recent colonoscopy, they have been trying to reach out to him with a prescription for a medication based on the results from his colonoscopy although he has been unable to fill it. I did attempt to reach out to his GI doctor but have not heard back from them. He is instructed to call his GI doctor to close the loop and find out what medication he was supposed to be on. In regards to the enteritis he will be sent a prescription for Cipro/Flagyl to take for an additional 5 days Recommend close follow-up with his GI doctor Vital Signs/Physical Exam: Temp Pulse Resp BP Pulse Ox 97.7 F 64 12 118/68 97 10/05/24 08:00 10/05/24 08:00 10/05/24 08:00 10/05/24 08:00 10/05/24 08:00 General: Alert, In no apparent distress, Oriented x3 HEENT: Atraumatic, PERRLA Neck: Supple, JVD not distended Respiratory: Clear to auscultation bilaterally, Normal air movement Cardiovascular: Regular rate/rhythm, Normal S1 S2 Gastrointestinal: Normal bowel sounds, No tenderness Musculoskeletal: No tenderness Integumentary: No rashes Neurological: Normal speech, Normal affect Laboratory Data at Discharge: WBC 7.70 thou/uL (4.3-10.9) 10/05/24 04:16 Hgb 13.7 g/dL (13.6-17.9) 10/05/24 04:16 Hct 40.1 % (39.6-49.0) 10/05/24 04:16 Plt Count 237 thou/uL (152-406) 10/05/24 04:16 PT 11.4 SECONDS (10-13.0) 10/03/24 10:26 INR 1.00 10/03/24 10:26 APTT 30.8 SECONDS (27.2-37.4) 10/03/24 10:26 Sodium 137 mEq/L (136-145) 10/05/24 04:16 Potassium 4.2 mEq/L (3.5-5.1) 10/05/24 04:16 BUN 12 mg/dL (7-18) 10/05/24 04:16 Creatinine 0.89 mg/dL (0.70-1.30) 10/05/24 04:16 Glucose 98 mg/dL (74-106) 10/05/24 04:16 Total Bilirubin 1.0 mg/dL (0.2-1.0) 10/03/24 04:27 AST 14 U/L (15-37) L 10/03/24 04:27 ALT 31 U/L (16-61) 10/03/24 04:27 Alkaline Phosphatase 93 U/L (45-117) 10/03/24 04:27 Home Medications: Ciprofloxacin HCl [Cipro 500 MG Tablet] 500 mg PO BID 5 Days #10 tab 10/05/24 metroNIDAZOLE [Flagyl] 500 mg PO Q8H 5 Days #15 tab 10/05/24 New Medications: Ciprofloxacin HCl [Cipro 500 MG Tablet] 500 mg PO BID 5 Days #10 tab metroNIDAZOLE [Flagyl] 500 mg PO Q8H 5 Days #15 tab Physician Discharge Instructions: 49-year-old male presents to the hospital with chief complaint of abdominal pain nausea vomiting and diarrhea. He had leukocytosis and his CT scan showed concern for enteritis/ileus. He was treated conservatively with IV antibiotics and bowel rest and had significant improvement in his symptoms. His white blood cell count is decreased and he is tolerating a diet currently and stable for discharge with outpatient follow-up. He reports that he follows with a GI doctor and had a recent colonoscopy, they have been trying to reach out to him with a prescription for a medication based on the results from his colonoscopy although he has been unable to fill it. I did attempt to reach out to his GI doctor but have not heard back from them. He is instructed to call his GI doctor to close the loop and find out what medication he was supposed to be on. In regards to the enteritis he will be sent a prescription for Cipro/Flagyl to take for an additional 5 days Recommend close follow-up with his GI doctor Diet: [place] Activity: Ad erich Followup: NONE,NONE [Primary Care Provider] - 1-2 Weeks Time spent managing pt's care (in minutes): 45
== END 2024-10-05 10:31 | disposition home or self-care (01) | DRG 392 ==
LOC: ER 03:59 → ERHOLD 07:20 → 2ND 07:49
PROVIDERS: ADMIT Hospitalist; ATTEND Hospitalist
DX: K52.9 Noninfective gastroenteritis and colitis, unspecified (principal); K56.7 Ileus, unspecified; D72.825 Bandemia; D72.829 Elevated white blood cell count, unspecified
CPT/HCPCS: 36415; 71045; 74177; 80048; 80076; 81001; 83605; 84484; 85025; 85610; 85730; 87040; 87045; 87046; 87177; 87209; 87324; 93005; 96374; 99285; J2543; J7030; Q9967